=== PATIENT | female | born 1990 | race Caucasian/White ===

== ENCOUNTER 2020-06-20 20:57 | Inpatient (IN) ==
[2020-06-20] MEDS ORDERED: VECURONIUM 10 MG VIAL IV ONE ×2 (21:07→22:18)
[2020-06-20] MEDS ORDERED: ETOMIDATE 20 MG/10 ML VIAL IV ONE (21:07)
[2020-06-20] MEDS ORDERED: SODIUM CHLORIDE 0.9% 1,000 ML IV STA (21:16)
[2020-06-20] MEDS ORDERED: ONDANSETRON 4 MG/2 ML VIAL IV STA (21:16)
[2020-06-20 21:21] LABS: ABG Base Excess -9.8 MMOL/L (-2.5-2.5); ABG HCO3 16.8 MMOL/L (20-26); ABG Oxygen Saturation 99.3 % (95-100); ABG PCO2 37.1 MM HG (35-48); ABG PH 7.262 (7.35-7.45)
[2020-06-20 21:27] LABS: Basophils # 0.1 10*3/uL (0.0-0.2); Basophils % 0.7 % (0.0-0.8); Eosinophils # 0.2 10*3/uL (0.0-0.87); Eosinophils % 1.7 % (0.00-10.9); Hematocrit 42.6 VOL% (35.7-47.0); Hemoglobin 13.9 GM/DL (12.0-16.0); Immature Granulocytes % 0.4 %; Immature Granulocytes Absolute 0.06 #; Lymphocytes # 5.8 10*3/uL (1.4-4.0); Lymphocytes % 43.5 % (21.3-54.2); Mean Corpuscular HGB Conc 32.6 GM/DL (32-36); Mean Corpuscular Volume 97.3 FL (87-102); Mean Platelet Volume 9.6 FL (9.6-12.0); Monocytes % 13.1 % (1.7-12.7); Neutrophils % 40.6 % (38.7-73.9); Platelet Count 507 T/CUMM (130-400); Red Blood Count 4.38 MC/CUMM (3.8-5.5); Red Cell Distribution Width 13.1 % (9.3-17.3); White Blood Count 13.4 T/CUMM (4-12)
[2020-06-20 21:36] LABS: Salicylate < 2.8 MG/DL (2.8-20)
[2020-06-20 21:37] LABS: Acetaminophen < 2.0 UG/ML (10-30)
[2020-06-20 21:39] LABS: Alanine Aminotransferase 60 U/L (13-56); Albumin 4.3 G/DL (3.4-5.0); Alkaline Phosphatase 81 U/L (45-117); Aspartate Amino Transferase 41 U/L (0-37); Blood Urea Nitrogen 30 MG/DL (7-18); Calcium 8.9 MG/DL (8.5-10.1); Estimated Glom Filtration Rate 71 ML/MIN; Glucose 155 MG/DL (74-106); Osmolality,Calculated 283.7 MOS/KG (273-304); Total Protein 8.4 G/DL (6.4-8.3); Troponin I < 0.015 NG/ML (0.00-0.045)
[2020-06-20 21:43] LABS: Apearance,Urine CLEAR (Clear); Bacteria,Urine Occasional /HPF (Few); Bilirubin,Urine Negative (Negative); Blood, Urine Negative (Negative); Glucose,Urine (UA) Negative (Negative); Hyaline Casts,Urine 15 /LPF (0-3); Ketones,Urine 5 mg/dL (Negative); Mucus,Urine Occasional /LPF (Occasional); Nitrite,Urine Negative (Negative); Protein,Urine 100 MG/DL; RBC,Urine 3 /HPF (0-4); Squamous Epithelial Cell,Urine Occasional /HPF (0-10); Urine Color Yellow (Yellow); Urine Specific Gravity 1.023 (1.001-1.035); Urine Urobilinogen < 2.0 EU/DL (0.2-1.0); WBC,Urine 6 /HPF (0-6)
[2020-06-20 21:45] LABS: Barbiturates Screen,Urine Negative (Negative); Benzodiazepines Screen,Urine Negative (Negative); Cannabinoid Screen,Urine Negative (Negative); Opiate Screen,Urine Negative (Negative); Phencyclidine Screen,Urine Negative (Negative)
[2020-06-20] MEDS ORDERED: cefTRIAXone 1,000 MG in SODIUM CHLORIDE 0.9% 100 ML IV STA (21:54)
[2020-06-20] MEDS ORDERED: VECURONIUM 10 MG VIAL IV STA (22:20)
[2020-06-20] MEDS ORDERED: PIPERACILLIN/TAZOBACTAM 3,375 MG in SODIUM CHLORIDE 0.9% 100 ML IV STA (22:20)
[2020-06-20] MEDS ORDERED: PIPERACILLIN/TAZOBACTAM 3,375 MG VIAL IV ONE (22:25)
[2020-06-20 22:48] LABS: ABG Base Excess -2.3 MMOL/L (-2.5-2.5); ABG HCO3 19.3 MMOL/L (20-26); ABG PH 7.488 (7.35-7.45); ABG PO2 211.5 MM HG (80-95); ABG TCO2 20.1 MMOL/L (23-27)
[2020-06-20 22:58] LABS: ABG Oxygen Saturation 99.5 % (95-100)
[2020-06-20] MEDS ORDERED: PROMETHAZINE 25 MG/1 ML VIAL IM PRN (23:04)
[2020-06-20] MEDS ORDERED: ONDANSETRON 4 MG/2 ML VIAL IV PRN (23:04)
[2020-06-21] MEDS: ENOXAPARIN 40 MG/0.4 ML SYRINGE SUBCUT SCH ×2 (00:02→23:06)
[2020-06-21] MEDS: LACTATED RINGERS 1,000 ML IV SCH ×3 (00:03→16:33)
[2020-06-21 00:06] LABS: Band Neutrophils 2 % (0-10); Eosinophils 1 % (0-10); Lymphocytes 42 % (20-55); Segmented Neutrophils 45 % (50-85)
[2020-06-21 00:07] LABS: Platelet Estimate Normal; Total Cells Counted 100
[2020-06-21 03:05] LABS: ABG Base Excess -0.6 MMOL/L (-2.5-2.5); ABG HCO3 23.9 MMOL/L (20-26); ABG Oxygen Saturation 99.3 % (95-100); ABG PCO2 42.3 MM HG (35-48); ABG PH 7.374 (7.35-7.45); ABG TCO2 22.2 MMOL/L (23-27); Allen Test Positive; Pt O2 Delivery Device Ventilator
[2020-06-21 04:05] LABS: Basophils # 0.1 10*3/uL (0.0-0.2); Basophils % 0.4 % (0.0-0.8); Eosinophils # 0.1 10*3/uL (0.0-0.87); Eosinophils % 1.1 % (0.00-10.9); Hematocrit 33.3 VOL% (35.7-47.0); Hemoglobin 11.1 GM/DL (12.0-16.0); Immature Granulocytes % 0.4 %; Immature Granulocytes Absolute 0.04 #; Lymphocytes # 2.8 10*3/uL (1.4-4.0); Lymphocytes % 24.5 % (21.3-54.2); Mean Corpuscular HGB Conc 33.3 GM/DL (32-36); Mean Corpuscular Volume 93.5 FL (87-102); Mean Platelet Volume 9.8 FL (9.6-12.0); Monocytes % 12.4 % (1.7-12.7); Neutrophils % 61.2 % (38.7-73.9); Platelet Count 295 T/CUMM (130-400); Red Blood Count 3.56 MC/CUMM (3.8-5.5); Red Cell Distribution Width 13.1 % (9.3-17.3); White Blood Count 11.3 T/CUMM (4-12)
[2020-06-21 04:39] LABS: Albumin 3.1 G/DL (3.4-5.0); Bilirubin,Total 0.4 MG/DL (0.2-1.0); Calcium 7.8 MG/DL (8.5-10.1); Osmolality,Calculated 278.7 MOS/KG (273-304); Total Protein 6.2 G/DL (6.4-8.3)
[2020-06-21] MEDS: PANTOPRAZOLE 40 MG VIAL IV SCH (08:28)
[2020-06-21] MEDS ORDERED: LORazepam 2 MG/1 ML VIAL ONE (08:42)
[2020-06-21] MEDS ORDERED: LORazepam 2 MG/1 ML VIAL IV ONE (09:00)
[2020-06-21] MEDS ORDERED: HALOPERIDOL 5 MG/ML AMP IM PRN (11:01)
[2020-06-21] MEDS: LORazepam 2 MG/1 ML VIAL IV PRN (14:17)
[2020-06-21] MEDS ORDERED: ACETAMINOPHEN 325 MG TABLET PO PRN (17:44)
[2020-06-22] MEDS: LACTATED RINGERS 1,000 ML IV SCH ×2 (00:26→08:31)
[2020-06-22] MEDS: LORazepam 2 MG/1 ML VIAL IV PRN (01:59)
[2020-06-22 04:35] LABS: ABG Base Excess -3.8 MMOL/L (-2.5-2.5); ABG HCO3 21.3 MMOL/L (20-26); ABG Oxygen Saturation 99.3 % (95-100); ABG PCO2 38.5 MM HG (35-48); ABG PH 7.352 (7.35-7.45); Allen Test Positive; Pt O2 Delivery Device Ventilator
[2020-06-22 05:17] LABS: Basophils # 0.1 10*3/uL (0.0-0.2); Basophils % 0.5 % (0.0-0.8); Eosinophils # 0.1 10*3/uL (0.0-0.87); Eosinophils % 0.7 % (0.00-10.9); Hematocrit 32.5 VOL% (35.7-47.0); Hemoglobin 10.8 GM/DL (12.0-16.0); Immature Granulocytes % 0.3 %; Immature Granulocytes Absolute 0.03 #; Lymphocytes # 1.7 10*3/uL (1.4-4.0); Lymphocytes % 15.4 % (21.3-54.2); Mean Corpuscular HGB Conc 33.2 GM/DL (32-36); Mean Platelet Volume 9.7 FL (9.6-12.0); Monocytes % 10.4 % (1.7-12.7); Neutrophils % 72.7 % (38.7-73.9); Platelet Count 280 T/CUMM (130-400); Red Blood Count 3.42 MC/CUMM (3.8-5.5); Red Cell Distribution Width 12.8 % (9.3-17.3); White Blood Count 10.7 T/CUMM (4-12)
[2020-06-22 05:35] LABS: Calcium 7.9 MG/DL (8.5-10.1); Osmolality,Calculated 272.8 MOS/KG (273-304)
[2020-06-22] MEDS: PANTOPRAZOLE 40 MG VIAL IV SCH (08:58)
[2020-06-23] MEDS: ENOXAPARIN 40 MG/0.4 ML SYRINGE SUBCUT SCH (00:57)
[2020-06-23 06:36] LABS: Calcium 8.2 MG/DL (8.5-10.1); Osmolality,Calculated 279.4 MOS/KG (273-304)
[2020-06-23] MEDS ORDERED: POTASSIUM CHLORIDE 20 MEQ TABLET PO ONE (08:37)
[2020-06-23] MEDS: PANTOPRAZOLE 40 MG VIAL IV SCH (10:17)
[2020-06-23 13:28] VITALS: BP 125/78
== END 2020-06-23 12:45 | disposition home or self-care (01) | DRG 917 ==
LOC: EDUNIT# → EDBD → N.ED 20:57 → SUATTDRO 23:04 → N.EDINP 23:04 → N.ICU 23:32 → N.3E 06-22 15:49
PROVIDERS: ADMIT Internal Medicine; ATTEND Internal Medicine